=== PATIENT | male | born 1980 | race Caucasian/White ===

== ENCOUNTER 2017-02-05 11:07 | Emergency (ER) | payer OTHER ==
[~2017-02-05] VITALS: Ht 172.7 cm; Wt 75.0 kg
[2017-02-05 11:10] VITALS: BP 126/78
[2017-02-05] MEDS ORDERED: LORAZEPAM 0.5MG TABLET PO ONE (14:00)
== END 2017-02-05 16:02 | disposition home or self-care (01) ==
LOC: ER 11:21
DX: F41.9 Anxiety disorder, unspecified (principal); E78.5 Hyperlipidemia, unspecified
CPT/HCPCS: 93005; 99283